=== PATIENT | male | born 1965 | race Hispanic/Latino ===

== ENCOUNTER 2018-10-20 07:39 | Emergency (ER) | payer SELFPAY | END 2018-10-20 08:46 | disposition home or self-care (01) | LOC: EDH 07:39 | DX: R20.2 Paresthesia of skin (principal); Z72.0 Tobacco use | CPT/HCPCS: 99281 ==

== ENCOUNTER 2022-04-06 07:23 | Emergency (ER) | payer OTHER ==
[~2022-04-06] VITALS: Ht 170.2 cm; Wt 68.0 kg
[2022-04-06 07:25] VITALS: BP 121/64
[2022-04-06] MEDS ORDERED: KETOROLAC 30MG VIAL (30MG/ML) IM STA (07:39)
[2022-04-06] MEDS ORDERED: ORPHENADRINE CITRATE 30 MG/ML ML IM STA (07:39)
[2022-04-06] MEDS ORDERED: NAPR375T6 PO (10:16)
== END 2022-04-06 10:25 | disposition home or self-care (01) ==
LOC: EDH 07:23
DX: S46.911A Strain of unspecified muscle, fascia and tendon at shoulder and upper arm level, right arm, initial encounter (principal); X58.XXXA Exposure to other specified factors, initial encounter; Y93.89 Activity, other specified; Y92.89 Other specified places as the place of occurrence of the external cause; Y99.8 Other external cause status
CPT/HCPCS: 99284; 73030; 96372 ×2; J1885; J2360